=== PATIENT | female | born 1985 | race Caucasian/White ===

== ENCOUNTER → 2016-12-20 | Outpatient (CLI) | payer OTHER ==
--- NOTE | 2016-12-20 15:33 | US ---
Ultrasound Abdominal Limited at 1345 hours History: Right lower quadrant pain, possible appendicitis. Technique: Graded compression with a high frequency linear transducer. Findings: A normal appendix is not identified. Small amount of free fluid in the right lower quadrant . Only normal loops of bowel are identified. Impression: No indirect sonographic evidence for appendicitis. Findings and recommendations discussed with Dr. Josy Bui at 1525 hours today.
--- NOTE | 2016-12-20 15:36 | US ---
Ultrasound Pelvis Complete (Transabdominal and Endovaginal) Including Duplex/Doppler Imaging History: Right lower quadrant pain. Technique: Transabdominal and endovaginal ultrasound images were obtained. Endovaginal images obtain ed for better evaluation of the uterine myometrium and adnexa. Duplex/Doppler imaging of adnexa. Findings: Uterus measures 9 x 5 x 6 cm. Endometrial thickness is 13 mm. Small cystic focus in the fu ndus of the endometrium measuring 7 x 7 x 4 mm. No definite uterine leiomyomata. Small amount of flui d in the lower uterine segment. Right ovary measures 4.8 x 2.5 x 2.4 cm. Left ovary measures 3.2 x 2.6 x 1.3 cm. In the right ovary, there is a partially collapsed cyst or follicle measuring 2.4 x 2 x 1.3 cm. Small amount of free flui d in the pelvis around the fundus and adjacent to the right ovary. free fluid in the pelvis. Color Do ppler flow to both ovaries without torsion. Impression: 1. Partially collapsed right ovarian cyst or follicle measuring 2.4 x 2 x 1.3 cm. 2. No ovarian torsion. 3. Small amount of free fluid in the pelvis and right adnexal region. Findings and recommendations discussed with Dr. Josy Bui at 1525 hours today.
== END ==
LOC: FIMAGING 13:08
PROVIDERS: ATTEND Internal Medicine
DX: R10.31 Right lower quadrant pain (principal); N83.201 Unspecified ovarian cyst, right side

== ENCOUNTER → 2017-06-15 | Outpatient (CLI) | payer OTHER | LOC: FIMAGING 09:42 | PROVIDERS: ATTEND Obstetrics & Gynecology | DX: Z09 Encounter for follow-up examination after completed treatment for conditions other than malignant neoplasm (principal); R93.8 Abnormal findings on diagnostic imaging of other specified body structures ==